=== PATIENT | male | born 1965 | race Caucasian/White ===

== ENCOUNTER → 2021-08-08 | Day surgery (SDC) | payer BC ==
[~2021-08-08] MED LIST: CALCIUM PO; FENTANYL CITRATE/PF 100MCG/2 ML INJ ONE; MIDAZOLAM HCL 2 MG/2 ML VIAL ONE; OR PHACO EYE KIT ONE; PREOP PHACO EYE KIT ONE; VITAMIN C PO; VITAMIN D3 PO; VITAMIN E PO; ZINC PO; [UNRECOGNIZED DRUG - OTHER] PO
[2021-08-08 14:50] VITALS: BP 136/88
== END | disposition home or self-care (01) ==
LOC: OR 11:05
PROVIDERS: ATTEND Ophthalmology
DX: H25.11 Age-related nuclear cataract, right eye (principal); E78.5 Hyperlipidemia, unspecified; M26.609 Unspecified temporomandibular joint disorder, unspecified side; Z01.812 Encounter for preprocedural laboratory examination; Z20.822 Contact with and (suspected) exposure to COVID-19
CPT/HCPCS: 66984; J2250; J3010; U0002; V2788

== ENCOUNTER → 2021-08-22 | Day surgery (SDC) | payer BC ==
[2021-08-22 17:20] VITALS: BP 123/79
== END | disposition home or self-care (01) ==
LOC: OR 12:55
PROVIDERS: ATTEND Ophthalmology
DX: H25.12 Age-related nuclear cataract, left eye (principal); Z01.812 Encounter for preprocedural laboratory examination; Z20.822 Contact with and (suspected) exposure to COVID-19
CPT/HCPCS: 66984; J2250; J3010; U0002; V2788